=== PATIENT | male | born 1950 ===

== ENCOUNTER → 2023-07-22 | Outpatient (CLI) | payer MEDICARE ==
--- NOTE | 2023-07-23 08:32 | MR ---
EXAMINATION TYPE: MR knee RT wo con DATE OF EXAM: 07/22/2023 8:43 PM CLINICAL INDICATION:Male, 72 years old with history of M25.561 RIGHT KNEE PAIN; PHH, Right knee pain for 10 days. COMPARISON: Radiographs from 07/17/2023 TECHNIQUE: Multi planar, multi sequence imaging was performed of the knee including: Triplane proton density fat-saturated images and T1-weighted imaging. No Gadolinium was given. IV Contrast: cc (none if empty) FINDINGS: Medial meniscus: Possible interstitial tear. Do not appreciate the tear extending either superior or inferior articular surface Medial femorotibial cartilage: Intact Medial collateral ligament: Intact Lateral meniscus: Tear. Anterior root is indistinct. Posterior root is indistinct Lateral femorotibial cartilage: Medial aspect of lateral tibial plateau wall demonstrates cartila ge thinning with subchondral bone marrow signal and tiny geodes Lateral collateral ligament complex: Intact Patellofemoral alignment: Normal Patellofemoral cartilage: Severe cartilage loss laterally lateral compartment of the patellofemor al joint with subchondral bone marrow edema. Extensor mechanism: Intact. Joint/bursal fluid: Complex effusion most pronounced in the lateral patellofemoral bursa. Complex bakers cyst which may be dissecting or ruptured. Muscles/tendons: The patellar tendon, quadriceps tendon, IT band, pes anserinus tendons, semimembrano mckenzie tendon, popliteus tendon, and biceps femoris tendon are all within normal limits. Bone marrow: Normal. Anterior cruciate ligament: Intact. Posterior cruciate ligament: Intact. Soft tissues: Unremarkable. 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 Complex bakers cyst which may b e dissecting or ruptured.
== END | disposition home or self-care (01) ==
LOC: RADMRIMAIN 20:15
PROVIDERS: ATTEND Orthopaedic Surgery
DX: M17.11 Unilateral primary osteoarthritis, right knee (principal); M25.461 Effusion, right knee

== ENCOUNTER → 2023-07-24 | Outpatient (CLI) | payer MEDICARE ==
[2023-07-24 16:31] LABS: Anion Gap 10.8 mmol/L (4.00-12.00); Carbon Dioxide 24.2 mmol/L (21.6-31.8)
[2023-07-24 19:17] LABS: Basophils # (A) 0.03 X 10*3/uL (0.00-0.10); Basophils % (A) 0.6 %; Eosinophils % (A) 3.8 %; HCT 40.6 % (39.6-50.0); HGB 13.7 g/dL (13.0-17.0); Lymphocytes # (A) 0.88 X 10*3/uL (0.90-5.00); Lymphocytes % (A) 16.8 %; MCH 33.5 pg (27.0-32.0); MCHC 33.7 g/dL (32.0-37.0); MCV 99.3 FL (80.0-97.0); Mean Platelet Volume 10.2 FL (9.5-12.2); Monocytes # (A) 0.71 X 10*3/uL (0.20-1.00); Monocytes % (A) 13.5 %; NRBC Per 100 WBC 0 X 10*3/uL (0.00-0.01); Neutrophils # (A) 3.39 X 10*3/uL (1.80-7.70); Neutrophils % (A) 64.7 %; Platelet Count 237 X 10*3/uL (140-440); RBC 4.09 X 10*6/uL (4.40-5.60); RDW 13.7 % (11.5-14.5); WBC 5.24 X 10*3/uL (4.50-10.00)
== END | disposition home or self-care (01) ==
LOC: LABWHC1 12:12
PROVIDERS: ATTEND Orthopaedic Surgery
DX: M23.91 Unspecified internal derangement of right knee (principal)
CPT/HCPCS: 36415; 80051; 85025; 93005